=== PATIENT | female | born 1960 | race American Indian/Alaskan Native ===

== ENCOUNTER 2020-08-21 07:08 | Day surgery (SDC) | payer BC ==
[2020-08-21] MEDS ORDERED: ASPIRIN EC 325 MG TAB PO ONE (07:45)
[2020-08-21] MEDS ORDERED: SODIUM CHLORIDE 0.9% 500 ML 500 ML IV SCH (08:00)
[2020-08-21] MEDS ORDERED: HEPARIN/NS 5000 UNIT/500ML 1,000 ML IR ONE (09:19)
[2020-08-21] MEDS: MIDAZOLAM 2 MG/2 ML INJ ONE ×3 (09:41→09:56)
[2020-08-21] MEDS: LIDOCAINE (2%) 20 MG/1 ML VIAL 20 ML MDV INFILTRATI ONE ×3 (09:41→09:56)
[2020-08-21] MEDS: fentaNYL 100 MCG/2 ML INJ ONE ×3 (09:41→09:56)
[2020-08-21] MEDS: VERAPAMIL 5 MG/2 ML INJ ONE ×2 (09:42→09:57)
[2020-08-21] MEDS: HEPARIN 10,000 UNITS/10 ML VIAL ONE ×2 (09:42→09:57)
--- NOTE | 2020-08-21 10:47 | Cardiac Catherization Report ---
INDICATION FOR PROCEDURE: A 59-year-old female with history of chest pains, exertional dyspnea, abnormal stress test with underlying hypertension, hyperlipidemia, obesity, and prediabetes, was noted to have a mildly abnormal stress nuclear imaging with mild ischemia in the juhi basilar area suggestive of small area of mild ischemia and having atypical chest pains, hence scheduled for cardiac catheterization for definitive diagnosis and treatment. The patient is aware of the procedure, potential complications and alternatives of therapy available. DESCRIPTION OF PROCEDURE: The patient was brought to the catheterization laboratory in a fasting condition. The right wrist area and forearm thoroughly cleansed with Betadine solution. The patient was evaluated for moderate sedation and when felt appropriate received IV Versed and fentanyl. Subsequently, local anesthesia was given in the right wrist area and right radial artery puncture was made using 21-gauge arterial puncture needle. Subsequently, 5-Turkish slender sheath was used. Initially multipurpose catheter was advanced into the left ventricle. A subclavian artery is tortuous. Left ventriculogram was performed using hand injection. Subsequently, this catheter was exchanged with a JL3.5 catheter to obtain the angiograms of the left coronary artery in multiple views. Right coronary angiography was performed with modified AR1 catheter. Because of tortuosity, it is difficult to manipulate to engage the coronaries; however, diagnostic angiograms were obtained. At the end of the procedure, catheter was removed over the wire and radial hemostasis was achieved with radial band application. The patient tolerated the procedure well. No untoward complications were noted. The patient was monitored throughout the procedure for any side effects from sedation. She was monitored with pulse oximetry, hemodynamic monitoring and EKG monitoring. The patient tolerated the sedation well. At the end of the procedure, the patient is breathing normally, communicating normally with no focal deficits. The patient's moderate sedation started at 9:52 a.m. and ended at 10:14 a.m. Following findings were noted. HEMODYNAMICS: 1. Opening aortic pressure 127/80. Left ventricular pressure 127/21. No gradient across the aortic valve. Estimated ejection fraction more than 65%. 2. Left ventriculogram done in ARSHAD projection showed normal sized left ventricle with excellent contractility. Mitral regurgitation was not evaluated because of limited amount of dye injected. Left coronary artery arises normally from left coronary cusp. Left main without significant disease. LAD showed smooth less than 20% eccentric lesion in the mid part. Rest of the LAD and its branches and circumflex artery and its branches showed only minimal irregularities. 3. Right coronary artery dominant vessel arises normally from right coronary cusp. This is tortuous, but angiographically smooth and normal. FINAL IMPRESSION: 1. Normal sized left ventricle with excellent contractility. End-diastolic pressure is mildly elevated at 21 mmHg. 1. Mild coronary disease with 20% smooth mid LAD lesion and very minimal irregularities elsewhere noted. At this time, the patient does not have any significant coronary artery disease to explain her symptoms. We will continue aggressive risk factor modification. The patient was transferred to the outpatient area in stable condition. Findings were explained in detail to the patient. No untoward complications were noted. [facility]# [id number] FUNMI/BETTY MONROY
--- NOTE | 2020-08-21 12:21 | Short Stay Summary ---
Short Stay Documentation Date of service: 08/21/20 - History H&P: obtained from office - Allergies and Medications Current Medications: Allergies No Known Allergies Allergy (Verified 08/21/20 07:44) Home Medications Medication Instructions Recorded Confirmed Last Taken Type amLODIPine [Norvasc] 5 mg PO DAILY 08/16/14 08/21/20 06/20/20 History Active Medications Sodium Chloride (Nacl 0.9% 500 Ml) 500 mls @ 50 mls/hr IV DIRECT NORM Stop: 08/21/20 17:59 Last Admin: 08/21/20 08:24 Dose: 50 mls/hr Documented by: - Brief post op/procedure progress note Date of procedure: 08/21/20 Pre-op diagnosis: abnormal stress test Post-op diagnosis: other (mild CAD) Procedure: [facility] - see dictated cath report Anesthesia: local Estimated blood loss: none Condition: stable - Disposition Condition at discharge: Good Disposition: [id number] TO HOME OR SELFCARE - Discharge Diagnoses (1) Mild CAD Status: Chronic (2) HTN (hypertension) Status: Chronic (3) Hyperlipidemia Status: Chronic (4) Prediabetes Status: Chronic Short Stay Discharge Plan Activity: advance as tolerated Diet: low fat, low cholesterol, low salt, diabetic Wound: open to air, keep clean and dry, per your surgeon's advice Follow up with: ELISE TREVIÑO MD [Primary Care Provider] - 7 Days Forms: CardCath PCI D/C Instructions
[2020-08-21 14:01] VITALS: BP 120/72
== END 2020-08-21 15:00 | disposition home or self-care (01) ==
LOC: CATHLABREC 07:08
PROVIDERS: ATTEND Internal Medicine
DX: R07.89 Other chest pain (principal); R06.09 Other forms of dyspnea; R94.39 Abnormal result of other cardiovascular function study; I25.3 Aneurysm of heart; I25.10 Atherosclerotic heart disease of native coronary artery without angina pectoris; I10 Essential (primary) hypertension; E78.49 Other hyperlipidemia; E78.5 Hyperlipidemia, unspecified; R73.03 Prediabetes; E66.09 Other obesity due to excess calories; K21.9 Gastro-esophageal reflux disease without esophagitis; Z90.49 Acquired absence of other specified parts of digestive tract; Z68.38 Body mass index [BMI] 38.0-38.9, adult; Z90.710 Acquired absence of both cervix and uterus; Z79.899 Other long term (current) drug therapy; Z98.890 Other specified postprocedural states; Z82.49 Family history of ischemic heart disease and other diseases of the circulatory system
CPT/HCPCS: 93005; 93458; 99156; C1894; J1644; J2250; J3010; J7040; Q9967